=== PATIENT | female | born 1985 | race Caucasian/White ===

== ENCOUNTER 2021-01-14 12:24 | Emergency (ER) | payer BC ==
[~2021-01-14] VITALS: Ht 175.3 cm; Wt 9.1 kg
[2021-01-14 12:40] VITALS: TEMP 97.6
[2021-01-14 13:19] LABS: BASO % 0.2 % (0.0-2.0); GRAN # 8.1 (1.4-6.5); LYMPH # 1.1 (1.2-3.4); LYMPH % 11.2 % (20.0-51.0); MEAN CELL VOLUME 94 fl (80.0-100.0); MEAN CORPUSCULAR HEMOGLOBIN 32 pg (27.0-31.0); MEAN CORPUSCULAR HGB CONC 33 g/dl (33.0-37.0); MEAN PLATELET VOLUME 8.8 fl (7.4-10.4); MONO # 0.2 (0.1-0.6); MONO % 2.3 % (1.7-9.3); PLATELET COUNT 317 K/mm3 (130-400); RED BLOOD COUNT 4.13 M/mm3 (4.10-5.30); REDCELL DISTRIBUTION WIDTH-CV 12.8 % (11.5-14.5)
[2021-01-14 13:30] LABS: ALANINE AMINOTRANSFERASE 22 U/L (4-34); ALBUMIN 4.5 gm/dL (3.5-5.0); ALKALINE PHOSPHATASE 94 U/L (50-136); ANION GAP 7 mmol/L (7-16); AST,SGOT 32 U/L (15-37); BILIRUBIN,TOTAL 0.4 mg/dL (0.0-1.0); BLOOD UREA NITROGEN 12 mg/dL (7-17); CALCIUM 8.5 mg/dL (8.4-10.2); CARBON DIOXIDE 26 mmol/L (22-30); CHLORIDE 106 mmol/L (98-107); CREATININE, serum 0.56 (0.52-1.25); GLUCOSE 108 mg/dL (74-106); POTASSIUM 3.7 mmol/L (3.4-5.0); SODIUM 139 mmol/L (137-145); TOTAL PROTEIN 7.8 gm/dL (6.4-8.2)
[2021-01-14 13:32] LABS: ALCOHOL(ethanol),MEDICAL < 10 mg/dL
[2021-01-14] MEDS ORDERED: PHENERGAN12.5 MG/SU RC (13:53)
[2021-01-14 14:31] LABS: COLLECTION METHOD CLEAN CATCH
[2021-01-14 14:51] LABS: BUDDING YEAST Present /hpf; MUCOUS Present /lpf; PH 9 (5-8); SQUAMOUS EPITHELIAL None Seen /hpf; URINE APPEARANCE Turbid; URINE BACTERIA Rare /hpf; URINE BILIRUBIN Negative (NEGATIVE); URINE BLOOD Negative (NEGATIVE); URINE COLOR Yellow; URINE GLUCOSE Negative (NEGATIVE); URINE KETONE Trace (NEGATIVE); URINE LEUKOCYTE ESTERASE Negative (NEGATIVE); URINE NITRATE Negative (NEGATIVE); URINE PROTEIN(semi-quant) Negative (NEGATIVE); URINE UROBILINOGEN Negative (NEGATIVE)
[2021-01-14 15:06] VITALS: BP 145/79; PULSE 79
== END 2021-01-14 15:07 | disposition home or self-care (01) ==
LOC: COL.ER 12:24
PROVIDERS: Physician Assistant
DX: K29.20 Alcoholic gastritis without bleeding (principal); Z32.02 Encounter for pregnancy test, result negative
CPT/HCPCS: J2550; J7030

== ENCOUNTER 2021-11-15 14:23 | Observation (INO) | payer BC ==
[~2021-11-15] VITALS: Ht 172.7 cm; Wt 97.7 kg
[~2021-11-15 14:23] MED LIST: PHENERGAN12.5 MG/SU RC
--- NOTE | 2021-11-15 14:35 | NUR ---
1435- Pt arrives on unit ambulatory with . Complains of SROM at 1410 today. Pt into gown. 1430- G3L0 at 18+6 weeks. Pt states she noticed a gush of fluid while sitting at her desk, went to the bathroom and had another gush on the toilet. Pt denies VB, cramping, or UCs. +FM of both babies today per Pt. 1436- Amniotrace positive of fluid noted on inner thighs. Pt tearful, supportive. 1441- Dr Mckenna notified, see physician notification.
[2021-11-15 14:40] VITALS: BP 145/89; PULSE 87
--- NOTE | 2021-11-15 14:53 | NUR ---
1453- Dr Mckenna at bedside. 1455- IV start without difficutly, labs obtained to hold. Pt tolerated well. 1457- Bedside US by Dr Mckenna. heart activity noted on both twins. See physician note. MD wants to try to transfer Pt to another hospital. Questions answered.
--- NOTE | 2021-11-15 15:06 | NUR ---
1506- Dr Mckenna requests this RN to attempt continuous FM. Baby A on monitor for approximately 30 seconds. Pt requests to void. 1509- Pt back to bed, Attempted to place on EFM. 1519- Approximately 60 seconds of tracing noted of both babies. Dr Mckenna okay with stopping EFM . 1525- [employer] Enterprised.
[2021-11-15 15:32] VITALS: BP 123/79; PULSE 67
[2021-11-15 16:02] VITALS: BP 128/69; PULSE 65; TEMP 97.7
--- NOTE | 2021-11-15 16:11 | NUR ---
1611- [facility] off. Pt up to void and put on peripad & underwear. 1620- Pt transfered to 218 via wheelchair, oriented to room. Call light at bedside.
[2021-11-15 16:54] LABS: BASO % 0.2 % (0.0-2.0); EOS % 0.1 % (0.0-4.0); GRAN # 6.6 K/mm3 (1.4-6.5); GRAN % 70.1 % (42.2-75.2); HEMOGLOBIN 12.1 g/dl (12.5-16.0); LYMPH # 2.2 K/mm3 (1.2-3.4); LYMPH % 23.3 % (20.0-51.0); MEAN CELL VOLUME 91 fl (80.0-100.0); MEAN CORPUSCULAR HEMOGLOBIN 32 pg (27-31); MEAN CORPUSCULAR HGB CONC 35 g/dl (33.0-37.0); MEAN PLATELET VOLUME 9.8 fl (7.4-10.4); MONO # 0.6 K/mm3 (0.1-0.6); MONO % 5.9 % (1.7-9.3); PLATELET COUNT 283 K/mm3 (130-400); RED BLOOD COUNT 3.81 M/mm3 (4.10-5.30); REDCELL DISTRIBUTION WIDTH-CV 13.7 % (11.5-14.5)
[2021-11-15 16:55] LABS: HEMATOCRIT 34.7 % (37.0-47.0)
--- NOTE | 2021-11-15 17:05 | NUR ---
1705- RN called to room by Pt. Pt states she noticed blood when she went to the bathroom. States she noticed pink tinge on the toilet paper and on her peripad. Upon visualization of pad, scant pink-tinged fluid noted on pad. Encouraged Pt to notify if cramping or bleeding increased. Pt verbalized understanding.
[2021-11-15] MEDS ORDERED: FOLIC ACID 40400 MCG PO (17:11)
[2021-11-15] MEDS ORDERED: TRANDATE 100MG100 MG PO (17:11)
[2021-11-15] MEDS ORDERED: PRENATAL TABLET PO (17:11)
[2021-11-15] MEDS ORDERED: FLONASE NASAL S16 GM NS (17:12)
[2021-11-15 20:30] VITALS: BP 111/57; PULSE 73; TEMP 97.4
[2021-11-16 04:00] VITALS: BP 110/61; PULSE 69; TEMP 98.5
[2021-11-16 07:30] VITALS: BP 117/56; PULSE 76; TEMP 98.4
--- NOTE | 2021-11-16 09:00 | NUR ---
AT BEDSIDE, PROVIDES BEDSIDE ULTRASOUND, SEE PHYS NOTE. PT EDUCATED IN DEPTH ON STRICT BEDREST ORDERS UPON RETURNING HOME WELL WHEN TO RETURN TO UNIT. PT STATES HER UNDERSTANDING. FOLLOW UP APPOINTMENT & ULTRASOUND DISCUSSED FOR THIS Thursday11/20/21, PT AWARE AND ACKNOWLEDGES APPOINTMENT. FOB AT BEDSIDE THROUGHOUT DISCUSSION. SCANT PINK LOCHIA NOTED TO YURIY PAD AT 0830, PT DENIES ANY FURTHER LEAKING. VITAL SIGNS STABLE. PT DENIES PAIN OR FURTHER NEEDS AT THIS TIME.
[2021-11-16] MEDS ORDERED: AMOXICILLIN 50500 MG PO (09:39)
--- NOTE | 2021-11-16 10:42 | NUR ---
PT REQUESTING TO TAKE A SHOWER FOLLOWING HER BREAKFAST. TAKING SHOWER NOW THEN WILL FURTHER REVIEW ALL DC ORDERS AND INSTRUCTIONS. SCANT AMOUNT OF PINK TINGED FLUID ON REMOVED YURIY PAD PRIOR TO SHOWER.
== END 2021-11-16 10:55 | disposition home or self-care (01) ==
LOC: LDRO 14:23 → OB 16:07
PROVIDERS: Obstetrics & Gynecology; ADMIT Obstetrics & Gynecology
DX: O42.912 Preterm premature rupture of membranes, unspecified as to length of time between rupture and onset of labor, second trimester (principal); O30.002 Twin pregnancy, unspecified number of placenta and unspecified number of amniotic sacs, second trimester; O16.2 Unspecified maternal hypertension, second trimester; Z3A.18 18 weeks gestation of pregnancy; Z98.890 Other specified postprocedural states; Z87.59 Personal history of other complications of pregnancy, childbirth and the puerperium; Z79.899 Other long term (current) drug therapy
CPT/HCPCS: G0378

== ENCOUNTER → 2023-04-28 | Outpatient (CLI) | payer BC ==
[~2023-04-28] MED LIST changes: +AMOXICILLIN 50500 MG PO; +FLONASE NASAL S16 GM NS; +FOLIC ACID 40400 MCG PO; +PRENATAL TABLET PO; +TRANDATE 100MG100 MG PO
== END ==
LOC: MC.RAD 03-10 15:15
DX: N63.13 Unspecified lump in the right breast, lower outer quadrant (principal)